=== PATIENT | male | born 1995 | race American Indian/Alaskan Native ===

== ENCOUNTER 2016-07-30 02:36 | Emergency (ER) | payer MEDICAID ==
[2016-07-30 02:50] VITALS: BP 142/78
[2016-07-30] MEDS ORDERED: ZITHROMAX PO ONE (04:48)
[2016-07-30] MEDS ORDERED: ROCEPHIN IM ONE (04:48)
[2016-07-30] MEDS ORDERED: XYLOCAINE 1% MPF 5 mL INFILTRATI ONE (04:48)
--- NOTE | 2016-07-30 04:52 | Emergency Department Report ---
ED ENT HPI - General Chief complaint: Sore Throat Stated complaint: POSS STD/SORE THROAT Time Seen by Provider: 07/30/16 04:42 Source: patient Mode of arrival: Ambulatory Limitations: No Limitations - History of Present Illness Initial comments: This is a 21-year-old male presents with sore throat for the past 3 days and yellowish discharge from penis. Patient stated has a tingling sensation when urination that started today. Patient states has pain while swallowing and describes pain as razor blades. Patient subjective fever and chills. Patient denies any chest pain, shortness of breath, rapid breathing, drooling, slurred speech, numbness, tingling, abdominal pain, fever, nausea or vomiting. Denies any cough. Patient stated he is concerned about STD due to unknown sexual partner last Thursday. He denies using condoms. Patient is a homosexual. Denies any drug allergies. Denies any past medical history. Denies HIV or history of STD. MD complaint: sore throat, other (penile discharge) -: Gradual, days(s) (2) Severity: mild Severity scale (0 -10): 4 Quality: other (razer blade feeling when swallowing) Consistency: constant Improves with: none Worsens with: none Associated Symptoms: fever (subjective), pain with swallowing, sore throat. denies: cough, gum swelling, toothache, tinnitus, hearing loss, discharge from ear, rhinorrhea - Related Data Previous Rx's Medication Instructions Recorded Last Taken Type Fexofenadine/Pseudoephedrine 1 each PO QDAY #14 tab.er.24h 05/27/14 Unknown Rx [Annabel-D 24 Hour Tablet] Amoxicillin [Amoxicillin TAB] 875 mg PO BID #14 tablet 01/08/15 Unknown Rx Fluticasone [Flonase] 1 spray NS QDAY #1 bottle 01/08/15 Unknown Rx predniSONE [Deltasone] 20 mg PO QAM #6 tab 01/08/15 Unknown Rx hydrOXYzine HCL [Atarax] 25 mg PO Q6HR PRN #20 tablet 03/03/15 Unknown Rx methylPREDNISolone [Medrol Dose 4 mg PO QAM #1 pack 03/03/15 Unknown Rx Jossue] Amoxicillin/K Clav Tab [Augmentin 1 tab PO Q12HR #20 tab 07/30/16 Unknown Rx 875 mg] Allergies Allergy/AdvReac Type Severity Reaction Status Date / Time Sunflower And Derivatives Allergy Swelling Verified 09/19/14 14:42 dairy Allergy Swelling Uncoded 09/19/14 14:42 ED Dental HPI - General Chief complaint: Sore Throat Stated complaint: POSS STD/SORE THROAT Time Seen by Provider: 07/30/16 04:42 Source: patient Mode of arrival: Ambulatory Limitations: No Limitations - Related Data Previous Rx's Medication Instructions Recorded Last Taken Type Fexofenadine/Pseudoephedrine 1 each PO QDAY #14 tab.er.24h 05/27/14 Unknown Rx [Annabel-D 24 Hour Tablet] Amoxicillin [Amoxicillin TAB] 875 mg PO BID #14 tablet 01/08/15 Unknown Rx Fluticasone [Flonase] 1 spray NS QDAY #1 bottle 01/08/15 Unknown Rx predniSONE [Deltasone] 20 mg PO QAM #6 tab 01/08/15 Unknown Rx hydrOXYzine HCL [Atarax] 25 mg PO Q6HR PRN #20 tablet 03/03/15 Unknown Rx methylPREDNISolone [Medrol Dose 4 mg PO QAM #1 pack 03/03/15 Unknown Rx Jossue] Amoxicillin/K Clav Tab [Augmentin 1 tab PO Q12HR #20 tab 07/30/16 Unknown Rx 875 mg] Allergies Allergy/AdvReac Type Severity Reaction Status Date / Time Sunflower And Derivatives Allergy Swelling Verified 09/19/14 14:42 dairy Allergy Swelling Uncoded 09/19/14 14:42 ED Review of Systems ROS: Stated complaint: POSS STD/SORE THROAT Other details as noted in HPI Constitutional: denies: chills, fever Eyes: denies: eye pain, eye discharge, vision change ENT: throat pain. denies: ear pain Respiratory: denies: cough, shortness of breath, wheezing Cardiovascular: denies: chest pain, palpitations Endocrine: no symptoms reported Gastrointestinal: denies: abdominal pain, nausea, diarrhea Genitourinary: denies: urgency, dysuria Musculoskeletal: denies: back pain, joint swelling, arthralgia Skin: denies: rash, lesions Neurological: denies: headache, weakness, paresthesias Psychiatric: denies: anxiety, depression Hematological/Lymphatic: denies: easy bleeding, easy bruising ED Past Medical Hx - Past Medical History Previous Medical History?: Yes Hx Psychiatric Treatment: Yes (depression, ADHD, bipolar) Hx Asthma: Yes Additional medical history: Allergic rhinitis, eczema - Surgical History Past Surgical History?: No - Social History Smoking Status: Never Smoker Substance Use Type: Alcohol - Medications Home Medications: Home Medications Medication Instructions Recorded Confirmed Last Taken Type Fexofenadine/Pseudoephedrine 1 each PO QDAY #14 tab.er.24h 05/27/14 01/07/15 Unknown Rx [Annabel-D 24 Hour Tablet] Amoxicillin [Amoxicillin TAB] 875 mg PO BID #14 tablet 01/08/15 Unknown Rx Fluticasone [Flonase] 1 spray NS QDAY #1 bottle 01/08/15 Unknown Rx predniSONE [Deltasone] 20 mg PO QAM #6 tab 01/08/15 Unknown Rx hydrOXYzine HCL [Atarax] 25 mg PO Q6HR PRN #20 tablet 03/03/15 Unknown Rx methylPREDNISolone [Medrol Dose 4 mg PO QAM #1 pack 03/03/15 Unknown Rx Jossue] Amoxicillin/K Clav Tab [Augmentin 1 tab PO Q12HR #20 tab 07/30/16 Unknown Rx 875 mg] ED Physical Exam - General Limitations: No Limitations General appearance: alert, in no apparent distress - Head Head exam: Present: atraumatic, normocephalic, normal inspection - Eye Eye exam: Present: normal appearance, PERRL, EOMI. Absent: scleral icterus, conjunctival injection, nystagmus, periorbital swelling, periorbital tenderness - ENT ENT exam: Present: normal exam, mucous membranes moist, TM's normal bilaterally , normal external ear exam - Expanded ENT Exam Expanded Mouth exam: Present: normal external inspection, tongue normal. Absent: drooling, trismus, muffled voice, tongue elevation, laceration Teeth exam: Present: normal inspection Throat exam: Positive: tonsillar erythema, tonsillomegaly (2+), tonsillar exudate, other (Uvula midline). Negative: R peritonsillar mass, L peritonsillar mass - Neck Neck exam: Present: normal inspection, full ROM. Absent: tenderness, meningismus, lymphadenopathy, thyromegaly - Respiratory Respiratory exam: Present: normal lung sounds bilaterally. Absent: respiratory distress, wheezes, rales, rhonchi, stridor, chest wall tenderness, accessory muscle use, decreased breath sounds, prolonged expiratory - Cardiovascular Cardiovascular Exam: Present: regular rate, normal rhythm, normal heart sounds. Absent: bradycardia, tachycardia, irregular rhythm, systolic murmur, diastolic murmur, rubs, gallop - GI/Abdominal GI/Abdominal exam: Present: soft, normal bowel sounds. Absent: distended, tenderness, guarding, rebound, rigid, diminished bowel sounds - Rectal Rectal exam: Present: deferred - exam: Present: normal inspection. Absent: testicular tenderness, urethral discharge, scrotal swelling, vertical testicular lie External exam: Present: normal external exam. Absent: erythema, swelling, lesions, lacerations, ecchymosis, bleeding - Extremities Exam Extremities exam: Present: normal inspection, full ROM, normal capillary refill. Absent: tenderness, pedal edema, joint swelling, calf tenderness - Back Exam Back exam: Present: normal inspection, full ROM. Absent: tenderness, CVA tenderness (R), CVA tenderness (L), muscle spasm, paraspinal tenderness, vertebral tenderness, rash noted - Neurological Exam Neurological exam: Present: alert, oriented X3, CN II-XII intact, normal gait - Psychiatric Psychiatric exam: Present: normal affect, normal mood - Skin Skin exam: Present: warm, dry, intact, normal color. Absent: rash ED Course Vital Signs 07/30/16 02:46 Temperature 99.1 F Pulse Rate 64 Respiratory 18 Rate Blood Pressure 142/78 O2 Sat by Pulse 100 Oximetry ED Medical Decision Making - Medical Decision Making Ed course: This is a 21-year-old male that presents with 2+ exudative tonsillitis with possible STD exposure. 1- after my physical exam, a UA with Chlamydia/gonorrhea has been obtained as well as strep culture and swab. 2- patient was instructed to return in 7 days to the medical records for the results of gonorrhea/chlamydia. 3- patient will be treated empirically for gonorrhea and chlamydia. Patient received Rocephin 250 mg IM and azithromycin 1 g in the ED. 4- patient received Augmentin 875 mg by mouth for 10 days due to extended tonsillitis. 5- patient was instructed to follow up with his primary care doctor in 3-5 days or if symptoms worsen been unbearable to return back to emergency as soon as possible Critical care attestation.: If time is entered above; I have spent that time in minutes in the direct care of this critically ill patient, excluding procedure time. ED Disposition Clinical Impression: Exudative tonsillitis, Possible exposure to STD Disposition: DC-01 TO HOME OR SELFCARE Is pt being admited?: No Does the pt Need Aspirin: No Condition: Stable Instructions: Safe Sex (ED), Amoxicillin/Clavulanate Potassium (By mouth), Tonsillitis (ED) Additional Instructions: Follow up with your primary care doctor in 3-5 days or if symptoms worsen been unbearable to return back to emergency as soon as possible. Return in 7 days to get results of gonorrhea and chlamydia at medical records. Take full course of antibiotics as prescribed. Prescriptions: Amoxicillin/K Clav Tab [Augmentin 875 mg] 1 tab PO Q12HR #20 tab Referrals: PRIMARY CAREMD [Primary Care Provider] - 3-5 Days [facility] [Outside] - 3-5 Days [facility] [Outside] - 3-5 Days MELBA VALERO JR, MD [Staff Physician] - 3-5 Days Forms: Work/School Release Form(ED)
[2016-07-30 05:20] LABS: Bilirubin,Urine NEG (Negative); Blood,Urine NEG (Negative); Ketones,Urine 20 mg/dL (Negative); Leukocyte Esterase,Urine NEG (Negative); Mucus,Urine 3+ /HPF; Nitrite,Urine NEG (Negative)
== END 2016-07-30 06:10 | disposition home or self-care (01) ==
LOC: ED 02:36
DX: J03.90 Acute tonsillitis, unspecified (principal); J45.909 Unspecified asthma, uncomplicated; F31.9 Bipolar disorder, unspecified; F90.9 Attention-deficit hyperactivity disorder, unspecified type; Z91.018 Allergy to other foods
CPT/HCPCS: 81001; 87116; 87430; 87591; 96372; 99283; J0696

== ENCOUNTER 2016-10-15 04:20 | Emergency (ER) | payer MEDICAID ==
[2016-10-15 08:36] VITALS: BP 126/58
--- NOTE | 2016-10-15 08:53 | Emergency Department Report ---
ED General Adult HPI - General Chief complaint: Sore Throat Stated complaint: THROAT PAIN/FEVER/HEAD PRESSURE Time Seen by Provider: 10/15/16 08:41 Source: patient Mode of arrival: Ambulatory Limitations: No Limitations - History of Present Illness Initial comments: 21-year-old male presents to the ED complaining about sore throat and painful swallowing for about 2 days. States that he feels slight swelling in his throat but denies difficulty in breathing or difficulty swallowing. Eyes taking medication. States fever is low-grade. Denies cough, chest pain, shortness of breath, abdominal pain. -: Gradual, days(s) (2) Severity scale (0 -10): 2 - Related Data Previous Rx's Medication Instructions Recorded Last Taken Type Fexofenadine/Pseudoephedrine 1 each PO QDAY #14 tab.er.24h 05/27/14 Unknown Rx [Annabel-D 24 Hour Tablet] Amoxicillin [Amoxicillin TAB] 875 mg PO BID #14 tablet 01/08/15 Unknown Rx Fluticasone [Flonase] 1 spray NS QDAY #1 bottle 01/08/15 Unknown Rx predniSONE [Deltasone] 20 mg PO QAM #6 tab 01/08/15 Unknown Rx hydrOXYzine HCL [Atarax] 25 mg PO Q6HR PRN #20 tablet 03/03/15 Unknown Rx methylPREDNISolone [Medrol Dose 4 mg PO QAM #1 pack 03/03/15 Unknown Rx Jossue] Amoxicillin/K Clav Tab [Augmentin 1 tab PO Q12HR #20 tab 10/15/16 Unknown Rx 875MG TAB] Escitalopram [Lexapro] 10 mg PO DAILY #30 tablet 10/15/16 Unknown Rx Ibuprofen [Motrin] 800 mg PO Q8HR PRN #30 tablet 10/15/16 Unknown Rx Allergies Allergy/AdvReac Type Severity Reaction Status Date / Time Shields And Derivatives Allergy Swelling Verified 09/19/14 14:42 dairy Allergy Swelling Uncoded 09/19/14 14:42 ED Review of Systems ROS: Stated complaint: THROAT PAIN/FEVER/HEAD PRESSURE Other details as noted in HPI Constitutional: denies: chills, fever Eyes: denies: eye pain, eye discharge, vision change ENT: throat pain. denies: ear pain Respiratory: denies: cough, shortness of breath, wheezing Cardiovascular: denies: chest pain, palpitations Endocrine: no symptoms reported Gastrointestinal: denies: abdominal pain, nausea, diarrhea Genitourinary: denies: urgency, dysuria Musculoskeletal: denies: back pain, joint swelling, arthralgia Skin: denies: rash, lesions Neurological: denies: headache, weakness, paresthesias Psychiatric: denies: anxiety, depression Hematological/Lymphatic: denies: easy bleeding, easy bruising ED Past Medical Hx - Past Medical History Previous Medical History?: Yes Hx Psychiatric Treatment: Yes (depression, ADHD, bipolar) Hx Asthma: Yes Additional medical history: Allergic rhinitis, eczema - Surgical History Past Surgical History?: No - Social History Smoking Status: Current Some Day Smoker Substance Use Type: Alcohol - Medications Home Medications: Home Medications Medication Instructions Recorded Confirmed Last Taken Type Fexofenadine/Pseudoephedrine 1 each PO QDAY #14 tab.er.24h 05/27/14 01/07/15 Unknown Rx [Annabel-D 24 Hour Tablet] Amoxicillin [Amoxicillin TAB] 875 mg PO BID #14 tablet 01/08/15 Unknown Rx Fluticasone [Flonase] 1 spray NS QDAY #1 bottle 01/08/15 Unknown Rx predniSONE [Deltasone] 20 mg PO QAM #6 tab 01/08/15 Unknown Rx hydrOXYzine HCL [Atarax] 25 mg PO Q6HR PRN #20 tablet 03/03/15 Unknown Rx methylPREDNISolone [Medrol Dose 4 mg PO QAM #1 pack 03/03/15 Unknown Rx Jossue] Amoxicillin/K Clav Tab [Augmentin 1 tab PO Q12HR #20 tab 10/15/16 Unknown Rx 875MG TAB] Escitalopram [Lexapro] 10 mg PO DAILY #30 tablet 10/15/16 Unknown Rx Ibuprofen [Motrin] 800 mg PO Q8HR PRN #30 tablet 10/15/16 Unknown Rx ED Physical Exam - General Limitations: No Limitations General appearance: alert, in no apparent distress - Head Head exam: Present: atraumatic, normocephalic - Eye Eye exam: Present: normal appearance - ENT ENT exam: Present: mucous membranes moist - Expanded ENT Exam Expanded Throat exam: Positive: tonsillar erythema, tonsillomegaly, tonsillar exudate. Negative: R peritonsillar mass, L peritonsillar mass - Neck Neck exam: Present: normal inspection. Absent: tenderness, meningismus - Respiratory Respiratory exam: Present: normal lung sounds bilaterally. Absent: respiratory distress, wheezes, rales, rhonchi, stridor - Cardiovascular Cardiovascular Exam: Present: regular rate, normal rhythm. Absent: systolic murmur, diastolic murmur, rubs, gallop - GI/Abdominal GI/Abdominal exam: Present: soft, normal bowel sounds - Rectal Rectal exam: Present: deferred - Extremities Exam Extremities exam: Present: normal inspection - Back Exam Back exam: Present: normal inspection - Neurological Exam Neurological exam: Present: alert, oriented X3 - Psychiatric Psychiatric exam: Present: normal affect, normal mood - Skin Skin exam: Present: warm, dry, intact, normal color. Absent: rash ED Course Vital Signs 10/15/16 10/15/16 04:26 08:35 Temperature 99.7 F H 99.8 F H Pulse Rate 90 72 Respiratory 20 15 Rate Blood Pressure 140/70 Blood Pressure 126/58 [Left] O2 Sat by Pulse 99 99 Oximetry ED Medical Decision Making - Medical Decision Making Patient is resting comfortably at this time. Exudates seen on tonsils. We'll start penicillin for tonsillitis. Patient also requesting refill on Lexapro. No acute distress at this time. Critical care attestation.: If time is entered above; I have spent that time in minutes in the direct care of this critically ill patient, excluding procedure time. ED Disposition Clinical Impression: Acute bacterial tonsillitis, Medication refill Disposition: TO HOME OR SELFCARE Is pt being admited?: No Does the pt Need Aspirin: No Condition: Good Instructions: Tonsillitis (ED) Prescriptions: Amoxicillin/K Clav Tab [Augmentin 875MG TAB] 1 tab PO Q12HR #20 tab Escitalopram [Lexapro] 10 mg PO DAILY #30 tablet Ibuprofen [Motrin] 800 mg PO Q8HR PRN #30 tablet PRN Reason: Pain Referrals: PRIMARY CARE, [Primary Care Provider] - 3-5 Days MAYO LEWIS MD [Staff Physician] - 3-5 Days Forms: Work/School Release Form(ED) Time of Disposition: 08:52
== END 2016-10-15 09:00 | disposition home or self-care (01) ==
LOC: ED 04:20
DX: J03.80 Acute tonsillitis due to other specified organisms (principal); B96.89 Other specified bacterial agents as the cause of diseases classified elsewhere; F90.9 Attention-deficit hyperactivity disorder, unspecified type; F31.9 Bipolar disorder, unspecified; F17.200 Nicotine dependence, unspecified, uncomplicated; J45.909 Unspecified asthma, uncomplicated; Z91.011 Allergy to milk products; Z88.8 Allergy status to other drugs, medicaments and biological substances
CPT/HCPCS: 87116; 87430; 99282

== ENCOUNTER 2020-11-27 11:07 | Emergency (ER) | payer SELFPAY ==
[2020-11-27 11:12] VITALS: BP 131/86
[2020-11-27] MEDS ORDERED: TETANUS,DIPH,PERTUSS(ACELL) VACCINE 0.5 ML SYRINGE IM ONE (11:23)
[2020-11-27] MEDS ORDERED: NEOMY 3.5 MG/BACIT 400 UNITS/POLY B 5000 UNITS/GM OINT PACKET TP ONE (11:23)
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
== END 2020-11-27 16:11 | disposition home or self-care (01) ==
LOC: ED 11:07
DX: S02.85XA Fracture of orbit, unspecified, initial encounter for closed fracture (principal); S02.19XA Other fracture of base of skull, initial encounter for closed fracture; S01.81XA Laceration without foreign body of other part of head, initial encounter; J45.909 Unspecified asthma, uncomplicated; F17.200 Nicotine dependence, unspecified, uncomplicated; Z72.89 Other problems related to lifestyle; Z91.018 Allergy to other foods; Z91.011 Allergy to milk products; Z79.899 Other long term (current) drug therapy; Y04.8XXA Assault by other bodily force, initial encounter; Y93.89 Activity, other specified; Y92.89 Other specified places as the place of occurrence of the external cause; Y99.8 Other external cause status
CPT/HCPCS: 70450; 70486; 90471; 90715; 99283; A6250